=== PATIENT | female | born 1945 | race Asian ===

== ENCOUNTER 2020-03-08 14:09 | Emergency (ER) | payer OTHER ==
[~2020-03-08] VITALS: Ht 172.7 cm; Wt 58.0 kg
[2020-03-08 14:20] VITALS: BP 194/103
[2020-03-08] MEDS ORDERED: CLONIDINE 0.1MG TABLET PO ONE (15:00)
== END 2020-03-08 15:50 | disposition left against medical advice (07) ==
LOC: ER 14:09
DX: I10 Essential (primary) hypertension (principal); E78.00 Pure hypercholesterolemia, unspecified; R45.1 Restlessness and agitation
CPT/HCPCS: 99283